=== PATIENT | female | born 1990 | race American Indian/Alaskan Native ===

== ENCOUNTER 2016-07-02 19:17 | Emergency (ER) | payer SELFPAY ==
[2016-07-02 19:53] VITALS: BP 143/105
[2016-07-02 21:56] LABS: Bacteria,Urine 3+ /HPF (Negative); Bilirubin,Urine NEG (Negative); Blood,Urine MOD (Negative); Ketones,Urine NEG (Negative); Leukocyte Esterase,Urine MOD (Negative); Mucus,Urine 1+ /HPF; Nitrite,Urine NEG (Negative); Protein,Urine <15 mg/dL mg/dL (Negative); Urobilinogen,Urine < 2.0 mg/dL (<2.0)
--- NOTE | 2016-07-02 22:21 | Emergency Department Report ---
ED General Adult HPI - General Chief complaint: Skin/Abscess/Foreign Body Stated complaint: LT ARM BOIL/VAGINAL BLEEDING Time Seen by Provider: 07/02/16 21:30 Source: patient Mode of arrival: Ambulatory Limitations: No Limitations - History of Present Illness Initial comments: Patient comes into the ER today with complaints of left axillary pain and swelling for the past week as well as dark brown vaginal discharge for the past 5-6 days. Patient denies any pelvic pain. Patient does state that she is sexually active but that she is on the Depo shot. With regards to the axillary complaint, patient states that she has been putting some topical balm on the area and the swelling has gone down but it is still very painful and tender. Patient denies any discharge. Patient denies any fever, chills, abdominal pain. Associated Symptoms: denies: chest pain, cough, diaphoresis, fever/chills, headaches, loss of appetite, nausea/vomiting, shortness of breath - Related Data Previous Rx's Medication Instructions Recorded Last Taken Type Cephalexin [Keflex] 500 mg PO TID #30 capsule 07/02/16 Unknown Rx HYDROcodone/APAP 5-325 [[place] 1 each PO Q4HR PRN #18 tablet 07/02/16 Unknown Rx 5/325] Sulfamethoxazole/Trimethoprim 1 each PO BID #20 tablet 07/02/16 Unknown Rx [Bactrim DS TAB] Allergies Allergy/AdvReac Type Severity Reaction Status Date / Time No Known Allergies Allergy Verified 07/02/16 19:48 ED Review of Systems ROS: Stated complaint: LT ARM BOIL/VAGINAL BLEEDING Other details as noted in HPI Constitutional: denies: chills, fever Eyes: denies: eye pain, eye discharge, vision change ENT: denies: ear pain, throat pain Respiratory: denies: cough, shortness of breath, wheezing Cardiovascular: denies: chest pain, palpitations Endocrine: no symptoms reported Gastrointestinal: denies: abdominal pain, nausea, diarrhea Genitourinary: discharge (dark brown). denies: urgency, dysuria, frequency, hematuria Musculoskeletal: denies: back pain, joint swelling, arthralgia Skin: lesions (left axillary swelling). denies: rash Neurological: denies: headache, weakness, paresthesias Psychiatric: denies: anxiety, depression Hematological/Lymphatic: denies: easy bleeding, easy bruising ED Past Medical Hx - Past Medical History Previous Medical History?: No - Surgical History Past Surgical History?: No - Social History Smoking Status: Never Smoker Substance Use Type: None - Medications Home Medications: Home Medications Medication Instructions Recorded Confirmed Last Taken Type Cephalexin [Keflex] 500 mg PO TID #30 capsule 07/02/16 Unknown Rx HYDROcodone/APAP 5-325 [[place] 1 each PO Q4HR PRN #18 tablet 07/02/16 Unknown Rx 5/325] Sulfamethoxazole/Trimethoprim 1 each PO BID #20 tablet 07/02/16 Unknown Rx [Bactrim DS TAB] ED Physical Exam - General Limitations: No Limitations General appearance: alert, in no apparent distress - Head Head exam: Present: atraumatic, normocephalic - Eye Eye exam: Present: normal appearance - ENT ENT exam: Present: mucous membranes moist - Neck Neck exam: Present: normal inspection. Absent: lymphadenopathy - Respiratory Respiratory exam: Present: normal lung sounds bilaterally. Absent: respiratory distress - Cardiovascular Cardiovascular Exam: Present: regular rate, normal rhythm. Absent: systolic murmur, diastolic murmur, rubs, gallop - GI/Abdominal GI/Abdominal exam: Present: soft, normal bowel sounds - External exam: Present: normal external exam. Absent: erythema, swelling, lesions, ecchymosis, bleeding Speculum exam: Present: cervical discharge. Absent: vaginal discharge (dark brownish discharge with cervical irritation and redness.), vaginal bleeding, foreign body - Extremities Exam Extremities exam: Present: tenderness (left axillary tenderness and swelling without redness. Large 5-6 cm area of induration without obvious palpable loculation noted.) - Back Exam Back exam: Present: normal inspection - Neurological Exam Neurological exam: Present: alert, oriented X3 - Psychiatric Psychiatric exam: Present: normal affect, normal mood - Skin Skin exam: Present: warm, dry, intact, normal color. Absent: rash ED Course Vital Signs 07/02/16 19:48 Temperature 99.2 F Pulse Rate 100 H Respiratory 20 Rate Blood Pressure 143/105 O2 Sat by Pulse 100 Oximetry ED Medical Decision Making - Medical Decision Making Patient is nontoxic and hemodynamically stable. I discussed with patient the option of incision and drainage of axillary infection at this time and patient would prefer not to do the incision at this time if not indicated. Urine results reviewed and discussed with patient room. I will start patient on some antibiotics appropriately as well as prescribe her some pain medications with close follow-up if symptoms fail to resolve or worsen. I instructed patient come back to the ER in the next couple days for potential incision and drainage if axillary infection is not improving. Patient stable for discharge and in agreement with treatment plan. Critical care attestation.: If time is entered above; I have spent that time in minutes in the direct care of this critically ill patient, excluding procedure time. ED Disposition Clinical Impression: Cutaneous abscess of left axilla, Vaginitis Disposition: DISCHARGED TO HOME OR SELFCARE Is pt being admited?: No Does the pt Need Aspirin: No Condition: Stable Instructions: Cellulitis (ED), Vaginitis (ED) Prescriptions: Cephalexin [Keflex] 500 mg PO TID #30 capsule HYDROcodone/APAP 5-325 [Forest 5/325] 1 each PO Q4HR PRN #18 tablet PRN Reason: Pain Sulfamethoxazole/Trimethoprim [Bactrim DS TAB] 1 each PO BID #20 tablet Referrals: PRIMARY CARE, [Primary Care Provider] - 3-5 Days Time of Disposition: 22:28
== END 2016-07-02 22:37 | disposition home or self-care (01) ==
LOC: ED 19:17
DX: L02.412 Cutaneous abscess of left axilla (principal); N76.0 Acute vaginitis
CPT/HCPCS: 81001; 81025; 87210; 87591; 99284

== ENCOUNTER 2018-03-24 13:25 | Emergency (ER) | payer MEDICAID ==
--- NOTE | 2018-03-24 14:00 | Emergency Department Report ---
Blank Doc - Documentation Documentation: 26 y o female presents with mid sternal 8/10 non radiating chest pain started this mornming no hx of cp or PMH. Exam: nontender to palp, non reducible seems a bit distressed states radiating to lft arm now PLAN: meds cp Protocol ordered ekg: normal sinus reevaluate
[2018-03-24 14:14] LABS: Basophils % (Auto) 0.5 % (0.0-1.8); Eosinophils # (Auto) 0.1 K/mm3 (0.0-0.4); Eosinophils % (Auto) 1.1 % (0.0-4.3); Hematocrit 40.2 % (30.3-42.9); Hemoglobin 13.4 gm/dl (10.1-14.3); Lymphocytes # (Auto) 2.9 K/mm3 (1.2-5.4); Lymphocytes % (Auto) 41.4 % (13.4-35.0); Mean Corpuscular HGB Conc 33 % (30-34); Mean Corpuscular Volume 88 fl (79-97); Monocytes # (Auto) 0.5 K/mm3 (0.0-0.8); Monocytes % (Auto) 7.7 % (0.0-7.3); Platelet Count 278 K/mm3 (140-440); Red Blood Count 4.58 M/mm3 (3.65-5.03)
[2018-03-24 14:25] LABS: BUN/Creatinine Ratio 16; Blood Urea Nitrogen 11 mg/dL (7-17); Calcium 9.8 mg/dL (8.4-10.2); Hemolysis Index 2
[2018-03-24] MEDS ORDERED: NORCO 5/325 PO ONE (15:03)
[2018-03-24] MEDS ORDERED: TORADOL IV ONE (15:03)
--- NOTE | 2018-03-24 15:46 | Emergency Department Report ---
ED Chest Pain HPI - General Chief Complaint: Chest Pain Stated Complaint: CHEST PAIN Time Seen by Provider: 03/24/18 13:50 Source: patient Mode of arrival: Ambulatory Limitations: No Limitations - History of Present Illness Initial Comments: 27-year-old -[place] female presents to the emergency department with a complaint of some midsternal chest pain that started about 11 AM this morning and has gotten progressive worse. She has some intermittent shortness of breath. The chest pain does not radiate. She denies any fever, nausea, vomiting, diaphoresis. She denies any past medical history. She is a nonsmoker. No family history of early cardiac disease or heart attack. She has not taken anything for her symptoms prior to presentation. Patient did have some recent travel in which she had a moderate length car ride. She denies any lower extremity swelling. Severity scale (0 -10): 8 - Related Data Previous Rx's Medication Instructions Recorded Last Taken Type Cephalexin [Keflex] 500 mg PO TID #30 capsule 07/02/16 Unknown Rx Sulfamethoxazole/Trimethoprim 1 each PO BID #20 tablet 07/02/16 Unknown Rx [Bactrim DS TAB] RX: HYDROcodone/APAP 5-325 [[place] 1 each PO Q6H PRN #10 tablet 03/24/18 Unknown Rx 5-325 mg TAB] Allergies Allergy/AdvReac Type Severity Reaction Status Date / Time No Known Allergies Allergy Verified 03/24/18 13:50 Heart Score - HEART Score History: Slightly suspicious EKG: Normal Age: < 45 Risk factors: No known risk factors Troponin: < normal limit HEART Score: 0 - Critical Actions Critical Actions: 0-3 pts:0.9-1.7%risk of adverse cardiac event.Candidate for discharge ED Review of Systems ROS: Stated complaint: CHEST PAIN Other details as noted in HPI Comment: All other systems reviewed and negative Constitutional: denies: chills, fever Eyes: denies: eye pain, vision change ENT: denies: ear pain, throat pain Respiratory: shortness of breath. denies: wheezing Cardiovascular: chest pain. denies: edema Gastrointestinal: denies: abdominal pain, vomiting Genitourinary: denies: dysuria, discharge Musculoskeletal: denies: back pain, arthralgia Skin: denies: rash, change in color Neurological: denies: headache, weakness ED Past Medical Hx - Past Medical History Previous Medical History?: No - Surgical History Past Surgical History?: No - Social History Smoking Status: Never Smoker Substance Use Type: Alcohol - Medications Home Medications: Home Medications Medication Instructions Recorded Confirmed Last Taken Type Cephalexin [Keflex] 500 mg PO TID #30 capsule 07/02/16 Unknown Rx Sulfamethoxazole/Trimethoprim 1 each PO BID #20 tablet 07/02/16 Unknown Rx [Bactrim DS TAB] RX: HYDROcodone/APAP 5-325 [[place] 1 each PO Q6H PRN #10 tablet 03/24/18 Unknown Rx 5-325 mg TAB] ED Physical Exam - General Limitations: No Limitations - Other Other exam information: GENERAL: The patient is well-developed well-nourished. HEENT: Normocephalic. Atraumatic. Patient has moist mucous membranes. EYES: Extraocular motions are intact. NECK: Supple. Trachea is midline. CHEST/LUNGS: Clear to auscultation. There is no respiratory distress noted. HEART/CARDIOVASCULAR: Regular. There is no tachycardia. There is no obvious murmur. ABDOMEN: Abdomen is soft, nontender. Patient has normal bowel sounds. Morbidly obese habitus. SKIN: Skin is warm and dry. NEURO: The patient is awake, alert, and oriented. The patient is cooperative. The patient has no focal neurologic deficits. The patient has normal speech. MUSCULOSKELETAL: There is no tenderness or deformity. There is no limitation range of motion. There is no evidence of acute injury. ED Course Vital Signs 03/24/18 03/24/18 03/24/18 13:50 15:25 15:26 Temperature 98 F Pulse Rate 100 H Respiratory 18 18 18 Rate Blood Pressure 151/97 Blood Pressure [Right] O2 Sat by Pulse 99 Oximetry 03/24/18 16:43 Temperature Pulse Rate Respiratory Rate Blood Pressure Blood Pressure 137/73 [Right] O2 Sat by Pulse Oximetry JAYLAN score - Jaylan Score Age > 65: (0) No Aspirin use within the Past 7 Days: (0) No 3 or more CAD Risk Factors: (0) No 2 or more Angina events in past 24 hrs: (0) No Known CAD with more than 50% Stenosis: (0) No Elevated Cardiac Markers: (0) No ST Deviation Greater than 0.5mm: (0) No JAYLAN Score: 0 ED Medical Decision Making - Lab Data Result diagrams: 03/24/18 13:57 03/24/18 13:57 - EKG Data -: EKG Interpreted by Me EKG shows normal: sinus rhythm, axis, intervals, QRS complexes, ST-T waves Rate: normal - EKG Data When compared to previous EKG there are: previous EKG unavailable Interpretation: normal EKG - Radiology Data Radiology results: report reviewed, image reviewed interpreted by me: Chest x-ray does not show any pneumothorax, pleural effusion, pneumonia or obvious focal consolidation. EXAM: CT ANGIO CHEST HISTORY: CP, elevated dimer TECHNIQUE: CT chest CT angiogram with reconstructions PRIORS: None. FINDINGS: There is no evidence of filling defect within the central pulmonary vasculature to suggest the presence of acute pulmonary embolus. No evidence of mediastinal pathologic lymph node enlargement Heart and great vessels are unremarkable. The aorta is normal in caliber. 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 No pleural fluid collection seen. No acute pulmonary abnormality noted. Visualized portion of the upper abdomen demonstrates no acute change. IMPRESSION: Negative. No CT evidence of acute pulmonary embolus Transcribed By: RODRICK Dictated By: ABHINAV HUSAIN MD Electronically Authenticated By: ABHINAV HUSAIN MD Signed Date/Time: 03/24/18 0499 - Medical Decision Making This patient presents to the emergency department with complaint of some nonradiating midsternal chest pain that started about 11 this morning. EKG is normal without ST elevation MT, ischemia or dysrhythmia. Chest x-ray did not show any pneumothorax, pleural effusions, pneumonia, focal consolidation, or any other acute process. Patient's labs are mostly unremarkable including a neg ative troponin but she did have a slightly elevated and equivocal d-dimer. For this reason a CT angiography of the chest was done that does not show any pulmonary embolism, dissection, or any other acute process. The patient was given a dose of Toradol and a [place] and upon reevaluation she says that her chest pain is greatly improved if not resolved. Vital signs stable throughout her ED course. The patient is low on the heart score criteria and has a JAYLAN score of 0. For all these reasons the patient appears safe for discharge home at this time. She has been given a referral for primary care and cardiology. She will return to the ER with any worsening of her symptoms or any acute dist ress. - Differential Diagnosis MT, PE, costochondritis, GERD, pneumonia Critical Care Time: No Critical care attestation.: If time is entered above; I have spent that time in minutes in the direct care of this critically ill patient, excluding procedure time. ED Disposition Clinical Impression: Atypical chest pain, Elevated blood pressure reading Disposition: TO HOME OR SELFCARE Is pt being admited?: No Condition: Stable Instructions: Chest Pain (ED), Costochondritis (ED) Additional Instructions: Please follow up with a primary care physician. I'm giving you a referral for a local tool profiling machine set up operator, Dr. Alejandra, to follow up regarding your chest pain. Return to the emergency department with any worsening of your symptoms or any acute distress. You have been prescribed a medication that can be sedating. Therefore, this medication cannot be taken prior to driving, working, being responsible for children, and cannot be mixed with alcohol of any quantity. Prescriptions: RX: HYDROcodone/APAP 5-325 [[place] 5-325 mg TAB] 1 each PO Q6H PRN #10 tablet PRN Reason: Pain Referrals: LES RIDDLE MD [Primary Care Provider] - 3-5 Days NIC ALEJANDRA MD [Staff Physician] - 3-5 Days [facility] [Outside] - 3-5 Days Time of Disposition: 16:38
--- NOTE | 2018-03-24 16:23 | XRay Report ---
CHEST TWO VIEWS: 03/24/18 14:46 CLINICAL: Chest pain. COMPARISON: None FINDINGS: Normal heart and pulmonary vasculature. The lungs are normally expanded and clear.The bones and soft tissues are unremarkable. IMPRESSION: Normal chest.
--- NOTE | 2018-03-24 16:29 | Cat Scan Report ---
FINAL REPORT EXAM: CT ANGIO CHEST HISTORY: CP, elevated dimer TECHNIQUE: CT chest CT angiogram with reconstructions PRIORS: None. FINDINGS: There is no evidence of filling defect within the central pulmonary vasculature to suggest the presen ce of acute pulmonary embolus. No evidence of mediastinal pathologic lymph node enlargement Heart and great vessels are unremarkable. The aorta is normal in caliber. Incidentally noted is aber rant right subclavian artery No focal pulmonary infiltrate identified. No pleural fluid collection seen. No acute pulmonary abnor mality noted. Visualized portion of the upper abdomen demonstrates no acute change. IMPRESSION: Negative. No CT evidence of acute pulmonary embolus
[2018-03-24 16:43] VITALS: BP 137/73
== END 2018-03-24 16:51 | disposition home or self-care (01) ==
LOC: ED 13:25
DX: R07.89 Other chest pain (principal); R03.0 Elevated blood-pressure reading, without diagnosis of hypertension
CPT/HCPCS: 36415; 71046; 71275; 80048; 84484; 84703; 85025; 85379; 93005; 93010; 96374; 99284; J1885; Q9967

== ENCOUNTER 2018-12-10 18:12 | Emergency (ER) | payer SELFPAY ==
--- NOTE | 2018-12-10 18:21 | Event Note ---
ED Screening Note ED Screening Note: left lower back pain that began three weeks ago no urinary sx no fall or injury no fever no n/v no bowel or bladder incontinence, no numbness or weakness no PMHx no allergies to meds LNMP: nov 25 family hx of HTN, denies any personal hx of HTN
[2018-12-10 18:25] VITALS: BP 152/98
[2018-12-10 19:09] LABS: Bilirubin,Urine NEG (Negative); Blood,Urine NEG (Negative); Color,Urine Yellow (Yellow); HCG Qualitative,Urine Negative (Negative); Mucus,Urine FEW /HPF; Protein,Urine <15 mg/dL mg/dL (Negative)
--- NOTE | 2018-12-10 19:39 | Emergency Department Report ---
ED Back Pain/Injury HPI - General Chief Complaint: Back Pain/Injury Stated Complaint: BACK/HIP PAIN Time Seen by Provider: 12/10/18 18:19 Source: patient Limitations: No Limitations - History of Present Illness Initial Comments: Patient is a 28-year-old [place] female states for the past 3 days she has had some lower back pain with radiation to the left hip. Patient states that is worse when she is sitting upright on her left buttock. There is some radiation and also into the anterior thigh. Patient denies any dysuria or urinary frequency vaginal discharge or vaginal bleeding nausea vomiting diarrhea at this time. Patient states the pain is also worse with movement and is 6 out of 10 pain. Patient has taken one muscle relaxant and several pain pills intermittently over the last 3 weeks. She has not been on any consistent therapy and this is her first time seeking medical help for this issue. - Related Data Previous Rx's Medication Instructions Recorded Last Taken Type Cephalexin [Keflex] 500 mg PO TID #30 capsule 07/02/16 Unknown Rx Sulfamethoxazole/Trimethoprim 1 each PO BID #20 tablet 07/02/16 Unknown Rx [Bactrim DS TAB] HYDROcodone/APAP 5-325 [[place] 1 each PO Q6H PRN #10 tablet 03/24/18 Unknown Rx 5-325 mg TAB] methOCARBAMOL [Robaxin TAB] 500 mg PO Q6H PRN #14 tablet 12/10/18 Unknown Rx predniSONE [Deltasone] 10 mg PO .TAPER #21 tab 12/10/18 Unknown Rx traMADol [Ultram] 50 mg PO Q6HR PRN #12 tablet 12/10/18 Unknown Rx Allergies Allergy/AdvReac Type Severity Reaction Status Date / Time No Known Allergies Allergy Verified 03/24/18 13:50 ED Review of Systems ROS: Stated complaint: BACK/HIP PAIN Other details as noted in HPI Comment: All other systems reviewed and negative ED Back Pain Physical Exam - Exam General: Vital signs noted. No distress. Alert and acting appropriately. Back/Abdomen: No Abdominal Tenderness, No Perithoracic Tenderness, No Perilumbar Tenderness, No Sacroiliac Tenderness, No Flank Tenderness, No Straight Leg Raise Pain Neuro: Yes Normal Sensation, Yes Normal DTR's, Yes Normal Gait, No Motor Weakness ED Course Vital Signs 12/10/18 12/10/18 18:16 18:24 Temperature 98.5 F Pulse Rate 96 H 97 H Respiratory 18 Rate Blood Pressure 157/110 152/98 O2 Sat by Pulse 98 97 Oximetry ED Medical Decision Making - Lab Data Lab Results 12/10/18 Range/Units Unknown Urine Color Yellow (Yellow) Urine Turbidity Slightly-cloudy (Clear) Urine pH 6.0 (5.0-7.0) Ur Specific [place] 1.023 (1.003-1.030) Urine Protein <15 mg/dl (Negative) mg/dL Urine Glucose (UA) Neg (Negative) mg/dL Urine Ketones Neg (Negative) mg/dL Urine Blood Neg (Negative) Urine Nitrite Neg (Negative) Ur Reducing Substances Not Reportable Urine Bilirubin Neg (Negative) Urine Ictotest Not Reportable Urine Urobilinogen 2.0 (<2.0) mg/dL Ur Leukocyte Esterase Tr (Negative) Urine WBC (Auto) 3.0 (0.0-6.0) /HPF Urine RBC (Auto) 2.0 (0.0-6.0) /HPF U Epithel Cells (Auto) 7.0 (0-13.0) /HPF Urine Mucus Few /HPF Urine HCG, Qual Negative (Negative) - Medical Decision Making Patient is a 28-year-old -[place] female who is presenting with some lower back and left hip pain. Urinalysis was negative for infection or significant hematuria. Asians likely with nerve pain with radiculopathy. Patient will be given meds for symptomatically relief and will follow with orthopedics as needed. Critical care attestation.: If time is entered above; I have spent that time in minutes in the direct care of this critically ill patient, excluding procedure time. ED Disposition Clinical Impression: Lumbar radiculopathy Disposition: DC-01 TO HOME OR SELFCARE Is pt being admited?: No Does the pt Need Aspirin: No Condition: Stable Instructions: Lumbar Radiculopathy (ED) Referrals: SAMIRA DARDEN MD [Staff Physician] - 3-5 Days Time of Disposition: 19:38
== END 2018-12-10 20:08 | disposition home or self-care (01) ==
LOC: ED 18:12
DX: M54.16 Radiculopathy, lumbar region (principal)
CPT/HCPCS: 81001; 81025

== ENCOUNTER 2020-08-05 12:04 | Outpatient (CLI) | payer BC, MEDICAID ==
[2020-08-05] MEDS ORDERED: LACTATED RINGERS 1,000 ML IV ONE (12:55)
[2020-08-05 13:54] LABS: Bacteria,Urine 3+ /HPF (Negative); Bilirubin,Urine NEG (Negative); Blood,Urine NEG (Negative); Color,Urine Yellow (Yellow); Mucus,Urine 1+ /HPF; Protein,Urine <15 mg/dL mg/dL (Negative); Urobilinogen,Urine < 2.0 mg/dL (<2.0)
[2020-08-05 14:24] LABS: Hematocrit 33.6 % (30.3-42.9); Hemoglobin 11.5 gm/dl (10.1-14.3); Mean Corpuscular HGB Conc 34 % (30-34); Mean Corpuscular Volume 88 fl (79-97); Platelet Count 190 K/mm3 (140-440); Red Cell Distribution Width 14.3 % (13.2-15.2)
[2020-08-05 14:51] LABS: Alanine Aminotransferase 11 units/L (7-56); Uric Acid 2.7 mg/dL (3.5-7.6)
[2020-08-05 14:52] VITALS: BP 127/76
== END 2020-08-05 15:15 | disposition home or self-care (01) ==
LOC: TRG 12:04 → APU 12:08 → TRG 15:15
PROVIDERS: ATTEND Obstetrics & Gynecology
DX: Z34.92 Encounter for supervision of normal pregnancy, unspecified, second trimester (principal); Z3A.25 25 weeks gestation of pregnancy
CPT/HCPCS: 36415; 59025; 81001; 82565; 83615; 84450; 84460; 84550; 85027

== ENCOUNTER 2020-10-29 12:26 | Inpatient (IN) | payer BC, MEDICAID ==
--- NOTE | 2020-10-29 12:33 | History and Physical Report ---
History of Present Illness Date of examination: 10/29/20 Date of admission: 10/29/20 12:26 Chief complaint: direct admit History of present illness: Past History : 5 Term Births: 2 Premature Births: 1 Living Children: 3 Para: 3 Mult. Births: 0 Prev : 0 Aborta: 2 Elect. Ab: 2 Spont. Ab: 0 Ectopics: 0 # 1 Delivery date: 09/23/2010 Weeks Gestation: 39+2 Delivery type: Vaginal Anesthesia type: IV medication Sex: female weight: 5.88 # 2 Delivery date: 01/19/2012 Weeks Gestation: 39 Delivery type: Vaginal Hours of labor: 8 Anesthesia type: IV medication Delivery location: [facility] Infant Sex: male weight: 7.31 # 3 Delivery date: 2014 Weeks Gestation: Unknown Delivery type: EAB Comments: Pt unsure of gestational age at termination, took medications, denies complications and did not have a D&C. # 4 Delivery date: 2020 Weeks Gestation: Unknown Delivery type: EAB Comments: Denies D&C and complications; reports she took medications. Pt unsure how many weeks of gestation at time of termination. #5 Delivery Date: 10/22/2020 Gestational Age: 36.4 weeks Labor Length: 8 hours Anesthesia: IV medication Delivery Type: Vaginal Weight: 5.88 lbs Gender: female Location: [facility] Complications: gHTN, 36.4 wks @ time of delivery Family History Summary: MGM - Has Family History of Hypertension - Entered On: 04/07/2020 PGM - Has Family History of Hypertension - Entered On: 04/07/2020 MGM - Has Family History of Diabetes - Entered On: 04/07/2020 PGM - Has Family History of Diabetes - Entered On: 04/07/2020 General Comments - FH: No Family History of Breast Cancer No Family History of Colon Cancer No Family History of Ovarvian Cancer Social History: Reviewed history from 03/04/2010 and no changes required: Patient is single no tobacco, no etoh, no illicit drug use Risk Factors: Smoked Tobacco Use: Never smoker Smokeless Tobacco Use: Never HIV high-risk behavior: no Alcohol use: yes Type: occ Exercise: no 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 % Dietary Counseling: pn yes PAP Smear History: Date of Last PAP Smear: 09/15/2019 Results: Normal Past Medical History: Reviewed history from 03/04/2010 and no changes required: Negative Past Medical History no std hx no abd pap hx Past Surgical History: Reviewed history from 09/27/2019 and no changes required: negative Past Medical History Anesthesia Complications: negative Anemia: negative Autoimmune Disorder: negative Bleeding Disorder: negative Blood Transfusions: negative Breast Disease: negative Diabetes: negative Heart Disease: negative Hypertension: negative Hepatitis/Liver Disease: negative Kidney Disease/UTI: negative Neurologic/Epilepsy/Migraines: negative Phlebitis/Varicosities: negative Psychiatric: negative Pulmonary Disease/Asthma: negative Thyroid Disease: negative Hospitalizations: negative Surgery (Non-animal skinner): negative Abnormal PAP: negative CRISSY Exposure: negative Infertility: negative Uterine Anomaly: negative Uterine Surgery (not C/S): negative Other Gynecologic Problems: negative Social Hx: Patient is single no tobacco, no etoh, no illicit drug use Infection History Hx of STD: none HIV Risk Eval: no Hepatitis B Risk Eval: low risk Personal hx. of genital herpes: no Partner hx. of genital herpes: no Rash, Viral, or Febrile illness since last LMP? no Varicella/Chicken Pox Status: Previous Disease TB Risk: no Genetic History Congenital Heart Defect: Mom: no Dad: no Cristina Disease: Mom: no Dad: no Thalassemia Mom: no Dad: no Neural Tube Defect Mom: no Dad: no Down's Syndrome Mom: no Dad: no Aaron-Sachs Mom: no Dad: no Sickle Cell Disease/Trait Mom: no Dad: no Hemophilia Mom: no Dad: no Muscular Dystrophy Mom: no Dad: no Cystic Fibrosis Mom: no Dad: no Lincoln Chorea Mom: no Dad: no Mental Retardation Mom: no Dad: no Fragile X Mom: no Dad: no Other Genetic/Chromosomal Disorder Mom: no Dad: no Child w/other defect Mom: no Dad: no Enviromental Exposures Enviromental Exposures Reviewed Xray Exposure: no Medication, drug, or alcohol use since LMP: no Chemical/Other Exposure: no Exposure to Cat Liter: no Hx of Parvovirus (Fifth Disease): no Occupational Exposure to Children: none Current Allergies (reviewed today): No known allergies Past History Past Medical History: other (see HPI) Past Surgical History: other (see HPI) 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) Family/Genetic History: other (see HPI) Social history: other (see HPI) - Obstetrical History : 5 Para: 3 Hx # Term Pregnancies: 2 Number of Pregnancies: 1 Spontaneous Abortions: 0 Induced : 2 Number of Living Children: 3 Medications and Allergies Allergies Allergy/AdvReac Type Severity Reaction Status Date / Time No Known Allergies Allergy Verified 03/24/18 13:50 Home Medications Medication Instructions Recorded Confirmed Last Taken Type Aspirin 325 mg PO ONCE 10/23/20 10/23/20 10/21/20 10:00 History Vit-Fe Fumar-FA [ 1 tab PO DAILY 10/23/20 10/23/20 10/21/20 10:00 History Vitamin] Labetalol HCl [Labetalol 300mg TAB] 300 mg PO TID #90 tablet 10/24/20 Unknown Rx Review of Systems Eyes: normal appearance, no blurred vision, no loss of peripheral vision, no tunnel vision, no blind spots Gastrointestinal: no abdominal pain Neurological: headaches - Physical Exam Breasts: Positive: Cardiovascular: Regular rate Lungs: Positive: Normal air movement Abdomen: Positive: normal appearance, soft Extremities: Positive: normal Results Result Diagrams: 10/29/20 14:20 10/29/20 14:20 All other labs normal. 05/05/2020 Tests: (1) Profile I ([id number]) Order Note: Clinical Information: SRC:UR HBsAg Screen Negative Negative *1 RPR Non Reactive Non Reactive *2 Rubella Antibodies, IgG [L] <0.90 index Immune >0.99 *3 Non-immune <0.90 Equivocal 0.90 - 0.99 Immune >0.99 ABO Grouping B *4 Rh Factor Positive *5 Please note: Prior records for this patient's ABO / Rh type are not available for additional verification. Antibody Screen Negative Negative *6 WBC 5.8 x10E3/uL 3.4-10.8 *7 RBC 3.88 x10E6/uL 3.77-5.28 *8 Hemoglobin 11.4 g/dL 11.1-15.9 *9 Hematocrit 35.3 % 34.0-46.6 *10 MCV 91 fL 79-97 *11 MCH 29.4 pg 26.6-33.0 *12 MCHC 32.3 g/dL 31.5-35.7 *13 RDW 13.1 % 11.7-15.4 *14 Platelets 221 x10E3/uL 150-450 *15 Neutrophils 58 % Not Estab. *16 Lymphs 31 % Not Estab. *17 Monocytes 10 % Not Estab. *18 Eos 1 % Not Estab. *19 Basos 0 % Not Estab. *20 ! Immature Cells <No Reported Value> *21 Neutrophils (Absolute) 3.3 x10E3/uL 1.4-7.0 *22 Lymphs (Absolute) 1.8 x10E3/uL 0.7-3.1 *23 Monocytes(Absolute) 0.6 x10E3/uL 0.1-0.9 *24 Eos (Absolute) 0.1 x10E3/uL 0.0-0.4 *25 Baso (Absolute) 0.0 x10E3/uL 0.0-0.2 *26 ! Immature Granulocytes 0 % Not Estab. *27 ! Immature Grans (Abs) 0.0 x10E3/uL 0.0-0.1 *28 ! NRBC <No Reported Value> *29 Hematology Comments: <No Reported Value> *30 Tests: (2) HB Solu + Rflx Frac ([id number]) Hemoglobin (Hgb) Solubility Negative Negative *31 Tests: (3) HIV Ag/Ab with Reflex ([id number]) HIV Screen 4th Generation wRfx Non Reactive Non Reactive *32 Tests: (4) Gest. Diabetes 1-Hr Screen ([id number]) ! Gestational Diabetes Screen 103 mg/dL 65-139 *33 According to ADA, a glucose threshold of >139 mg/dL after 50-gram load identifies approximately 80% of women with gestational diabetes mellitus, while the sensitivity is further increased to approximately 90% by a threshold of >129 mg/dL. Tests: (5) HCV Ab w/Rflx to Verification ([id number]) ! HCV Ab <0.1 s/co ratio 0.0-0.9 *34 Tests: (6) Comment: ([id number]) ! Comment: SPRCS *35 Non reactive HCV antibody screen is consistent with no HCV infection, unless recent infection is suspected or other evidence exists to indicate HCV infection. Tests: (7) Urine Culture, Routine ([id number]) Urine Culture, Routine Final report *36 Tests: (8) Result ([id number]) ! Result 1 No growth *37 Assessment and Plan Pt sent from office for direct admit d/t BP 160/120 & 160/100. Pt delivered via on 10/22/20; H/O Preeclampsia and Magnesium administration 1 week ago during hospital admission. Pt reports still taking Labetalol 300mg TID PO daily. Denies RUQ pain and vision changes. Reports headaches relieved by Motrin. Precautions and POC d/w pt. Pt verbalizes understanding. Dr. Pina made aware. Orders for admission placed in EMR. - Patient Problems (1) complication Current Visit: Yes Status: Acute Plan to address problem: consult requested breast pumping ordered (2) Pre-eclampsia Current Visit: No Status: Acute Qualifiers: Trimester: third trimester Qualified Code(s): O14.93 - Unspecified pre- eclampsia, third trimester Plan to address problem: Magnesium Sulfate IV with lab draws as ordered Strict I&O Continue home dose of PO antihypertensives, per Dr. Pina IV antihypertensives to be given if needed per protocol Monitor closely and notify provider with any changes in status
[2020-10-29] MEDS ORDERED: MAGNESIUM SULFATE 4 GM/100 ML BAG IV ONE (12:34)
[2020-10-29] MEDS ORDERED: ONDANSETRON 4 MG/2 ML INJ IV PRN (12:36)
[2020-10-29] MEDS ORDERED: LANOLIN/ZINC/DIMETHICONE (LANSINOH) 7 GM TP PRN (12:36)
[2020-10-29] MEDS ORDERED: diphenhydrAMINE 25 MG CAP PO PRN (12:36)
[2020-10-29] MEDS ORDERED: KETOROLAC 30 MG/1 ML INJ IV PRN (12:36)
[2020-10-29] MEDS ORDERED: BENZOCAINE/MENTHOL 20/0.5% TOP SPRAY 56 GM TP PRN (12:36)
[2020-10-29] MEDS ORDERED: ACETAMINOPHEN 325 MG TAB PO PRN (12:36)
[2020-10-29] MEDS ORDERED: PROMETHAZINE 25 MG TAB PO PRN (12:36)
[2020-10-29] MEDS ORDERED: MAGNESIUM HYDROXIDE (MOM) ORAL LIQD UDC PO PRN (12:36)
[2020-10-29] MEDS ORDERED: WITCH HAZEL/ GLYCERIN PAD TP PRN (12:36)
[2020-10-29] MEDS ORDERED: hydrALAZINE 20 MG/1 ML INJ IV SCH (13:00)
[2020-10-29] MEDS ORDERED: MAGNESIUM SULFATE 40GM/1000ML 40 GM/1,000 ML BAG IV SCH (13:00)
[2020-10-29] MEDS ORDERED: LACTATED RINGERS 1,000 ML ONE (13:02)
[2020-10-29] MEDS ORDERED: hydrALAZINE 20 MG/1 ML INJ ONE (13:18)
[2020-10-29] MEDS ORDERED: ACETAMINOPHEN 500 MG TAB PO PRN (14:00)
[2020-10-29] MEDS: LACTATED RINGERS 1,000 ML IV SCH (14:18)
[2020-10-29 15:12] LABS: Hematocrit 32.3 % (30.3-42.9); Hemoglobin 10.9 gm/dl (10.1-14.3); Mean Corpuscular HGB Conc 34 % (30-34); Mean Corpuscular Volume 89 fl (79-97); Platelet Count 236 K/mm3 (140-440); Red Blood Count 3.65 M/mm3 (3.65-5.03); Red Cell Distribution Width 15.5 % (13.2-15.2)
[2020-10-29 15:18] LABS: Bacteria,Urine 1+ /HPF (Negative); Bilirubin,Urine NEG (Negative); Blood,Urine LG (Negative); Color,Urine Yellow (Yellow); Mucus,Urine 3+ /HPF; Urobilinogen,Urine < 2.0 mg/dL (<2.0)
[2020-10-29 15:39] LABS: Alanine Aminotransferase 35 units/L (7-56); Uric Acid 5.1 mg/dL (3.5-7.6)
[2020-10-29] MEDS: IBUPROFEN 600 MG TAB PO PRN (19:27)
[2020-10-29] MEDS: DOCUSATE SODIUM 100 MG CAP PO SCH (22:32)
[2020-10-29] MEDS: FERROUS SULFATE 325 MG TAB PO SCH (22:32)
[2020-10-30] MEDS: LACTATED RINGERS 1,000 ML IV SCH (01:25)
--- NOTE | 2020-10-30 06:41 | Progress Note ---
Assessment and Plan Pt w/o complaint states " I'm happy to be getting some rest." - Patient Problems (1) Pre-eclampsia, Onset Date: ~10/29/20 Current Visit: Yes Status: Acute Plan to address problem: Pt's BP 160-117/80-60 Labetalol was held @ 2000 due to a reading of 90/50 MGSO4 infusing @ 2gm/hr due to be completed @ 1300. Output 1050 since midnight. Pt stable s/p 10-22-20 then readmit for BP control on 10-29-20. P: Will consult with Dr Clinton @ Labetalol. Continue 24hr MGSO4. Continue plan as ordered. Subjective Date of service: 10/30/20 (pt sleeping; denies GRANT, blurred vision, chest pain) Principal diagnosis: Hypertension Objective - Constitutional Vitals: Vital Signs - 12hr 10/29/20 10/29/20 10/29/20 18:37 18:42 18:47 Temperature Pulse Rate 88 90 90 Respiratory Rate Blood Pressure Blood Pressure [Right] O2 Sat by Pulse 99 99 99 Oximetry 10/29/20 10/29/20 10/29/20 18:52 18:57 19:02 Temperature Pulse Rate 87 84 84 Respiratory Rate Blood Pressure Blood Pressure [Right] O2 Sat by Pulse 100 99 99 Oximetry 10/29/20 10/29/20 10/29/20 19:07 19:12 19:17 Temperature Pulse Rate 85 82 75 Respiratory Rate Blood Pressure Blood Pressure [Right] O2 Sat by Pulse 99 99 99 Oximetry 10/29/20 10/29/20 10/29/20 19:22 19:27 19:30 Temperature 98.2 F Pulse Rate 79 86 83 Respiratory 18 18 Rate Blood Pressure Blood Pressure 118/58 [Right] O2 Sat by Pulse 98 100 100 Oximetry 10/29/20 10/29/20 10/29/20 19:31 19:32 19:37 Temperature Pulse Rate 82 83 82 Respiratory Rate Blood Pressure 118/58 Blood Pressure [Right] O2 Sat by Pulse 99 100 Oximetry 10/29/20 10/29/20 10/29/20 19:42 19:47 19:52 Temperature Pulse Rate 79 75 75 Respiratory Rate Blood Pressure Blood Pressure [Right] O2 Sat by Pulse 100 99 100 Oximetry 10/29/20 10/29/20 10/29/20 19:57 20:02 20:07 Temperature Pulse Rate 77 79 78 Respiratory Rate Blood Pressure Blood Pressure [Right] O2 Sat by Pulse 98 99 98 Oximetry 10/29/20 10/29/20 10/29/20 20:12 20:17 20:25 Temperature Pulse Rate 77 91 H 81 Respiratory Rate Blood Pressure 98/51 Blood Pressure [Right] O2 Sat by Pulse 99 99 Oximetry 10/29/20 10/29/20 10/29/20 20:27 20:30 20:57 Temperature Pulse Rate 82 80 Respiratory Rate Blood Pressure 106/55 107/56 98/51 Blood Pressure [Right] O2 Sat by Pulse Oximetry 10/29/20 10/29/20 10/29/20 20:58 21:31 22:10 Temperature Pulse Rate 80 79 Respiratory Rate Blood Pressure 98/51 134/66 Blood Pressure [Right] O2 Sat by Pulse 100 Oximetry 10/29/20 10/29/20 10/29/20 22:11 22:15 22:20 Temperature Pulse Rate 76 70 74 Respiratory Rate Blood Pressure 144/72 Blood Pressure [Right] O2 Sat by Pulse 100 99 Oximetry 10/29/20 10/29/20 10/29/20 22:25 22:30 22:31 Temperature Pulse Rate 77 78 77 Respiratory Rate Blood Pressure 146/73 Blood Pressure [Right] O2 Sat by Pulse 99 100 Oximetry 10/29/20 10/29/20 10/29/20 22:35 22:40 22:45 Temperature Pulse Rate 75 76 79 Respiratory Rate Blood Pressure 140/67 Blood Pressure [Right] O2 Sat by Pulse 100 100 100 Oximetry 10/29/20 10/29/20 10/29/20 22:50 22:55 23:00 Temperature Pulse Rate 72 71 70 Respiratory Rate Blood Pressure Blood Pressure [Right] O2 Sat by Pulse 100 99 99 Oximetry 10/29/20 10/29/20 10/29/20 23:05 23:10 23:15 Temperature Pulse Rate 73 82 83 Respiratory Rate Blood Pressure Blood Pressure [Right] O2 Sat by Pulse 98 100 100 Oximetry 10/29/20 10/29/20 10/29/20 23:20 23:25 23:30 Temperature Pulse Rate 76 80 75 Respiratory Rate Blood Pressure Blood Pressure [Right] O2 Sat by Pulse 100 99 99 Oximetry 10/29/20 10/29/20 10/29/20 23:31 23:35 23:40 Temperature Pulse Rate 75 72 74 Respiratory Rate Blood Pressure 132/66 Blood Pressure [Right] O2 Sat by Pulse 100 98 Oximetry 10/29/20 10/29/20 10/29/20 23:45 23:50 23:55 Temperature Pulse Rate 76 73 74 Respiratory Rate Blood Pressure Blood Pressure [Right] O2 Sat by Pulse 97 98 97 Oximetry 10/30/20 10/30/20 10/30/20 00:00 00:05 00:10 Temperature Pulse Rate 75 75 74 Respiratory Rate Blood Pressure Blood Pressure [Right] O2 Sat by Pulse 99 97 98 Oximetry 10/30/20 10/30/20 10/30/20 00:15 00:20 00:25 Temperature Pulse Rate 75 78 73 Respiratory Rate Blood Pressure Blood Pressure [Right] O2 Sat by Pulse 98 100 98 Oximetry 10/30/20 10/30/20 10/30/20 00:30 00:31 00:35 Temperature Pulse Rate 71 68 73 Respiratory Rate Blood Pressure 117/60 Blood Pressure [Right] O2 Sat by Pulse 99 98 Oximetry 10/30/20 10/30/20 10/30/20 00:40 00:45 00:50 Temperature Pulse Rate 71 70 69 Respiratory Rate Blood Pressure Blood Pressure [Right] O2 Sat by Pulse 98 98 99 Oximetry 10/30/20 10/30/20 10/30/20 00:55 01:00 01:05 Temperature Pulse Rate 73 71 74 Respiratory Rate Blood Pressure Blood Pressure [Right] O2 Sat by Pulse 98 98 98 Oximetry 10/30/20 10/30/20 10/30/20 01:10 01:15 01:20 Temperature Pulse Rate 69 72 75 Respiratory Rate Blood Pressure Blood Pressure [Right] O2 Sat by Pulse 98 98 99 Oximetry 10/30/20 10/30/20 10/30/20 01:21 01:25 01:30 Temperature Pulse Rate 75 70 73 Respiratory Rate Blood Pressure 158/72 Blood Pressure [Right] O2 Sat by Pulse 99 99 Oximetry 10/30/20 10/30/20 10/30/20 01:31 01:35 01:40 Temperature Pulse Rate 69 69 72 Respiratory Rate Blood Pressure 135/61 Blood Pressure [Right] O2 Sat by Pulse 98 99 Oximetry 10/30/20 10/30/20 10/30/20 01:45 01:50 01:55 Temperature Pulse Rate 72 70 73 Respiratory Rate Blood Pressure Blood Pressure [Right] O2 Sat by Pulse 98 99 98 Oximetry 10/30/20 10/30/20 10/30/20 02:00 02:05 02:10 Temperature Pulse Rate 75 77 75 Respiratory Rate Blood Pressure Blood Pressure [Right] O2 Sat by Pulse 98 98 100 Oximetry 10/30/20 10/30/20 10/30/20 02:15 02:20 02:25 Temperature Pulse Rate 73 73 72 Respiratory Rate Blood Pressure Blood Pressure [Right] O2 Sat by Pulse 99 99 99 Oximetry 10/30/20 10/30/20 10/30/20 02:30 02:31 02:34 Temperature Pulse Rate 76 71 82 Respiratory Rate Blood Pressure 139/64 Blood Pressure [Right] O2 Sat by Pulse 99 92 Oximetry 10/30/20 10/30/20 10/30/20 02:35 02:40 02:42 Temperature Pulse Rate 71 75 76 Respiratory Rate Blood Pressure Blood Pressure [Right] O2 Sat by Pulse 98 98 92 Oximetry 10/30/20 10/30/20 10/30/20 02:45 02:50 02:55 Temperature Pulse Rate 71 78 72 Respiratory Rate Blood Pressure Blood Pressure [Right] O2 Sat by Pulse 99 98 98 Oximetry 10/30/20 10/30/20 10/30/20 02:56 03:00 03:05 Temperature Pulse Rate 71 74 71 Respiratory Rate Blood Pressure Blood Pressure [Right] O2 Sat by Pulse 89 99 99 Oximetry 10/30/20 10/30/20 10/30/20 03:10 03:15 03:20 Temperature Pulse Rate 72 71 74 Respiratory Rate Blood Pressure Blood Pressure [Right] O2 Sat by Pulse 98 98 98 Oximetry 10/30/20 10/30/20 10/30/20 03:25 03:30 03:31 Temperature Pulse Rate 75 75 71 Respiratory Rate Blood Pressure 126/60 Blood Pressure [Right] O2 Sat by Pulse 98 99 Oximetry 10/30/20 10/30/20 10/30/20 03:35 03:40 03:45 Temperature Pulse Rate 70 70 74 Respiratory Rate Blood Pressure Blood Pressure [Right] O2 Sat by Pulse 99 98 98 Oximetry 10/30/20 10/30/20 10/30/20 03:50 03:55 04:00 Temperature Pulse Rate 72 75 75 Respiratory Rate Blood Pressure Blood Pressure [Right] O2 Sat by Pulse 98 98 98 Oximetry 10/30/20 10/30/20 10/30/20 04:05 04:10 04:15 Temperature Pulse Rate 76 76 75 Respiratory Rate Blood Pressure Blood Pressure [Right] O2 Sat by Pulse 98 99 100 Oximetry 10/30/20 10/30/20 10/30/20 04:20 04:25 04:30 Temperature Pulse Rate 77 74 76 Respiratory Rate Blood Pressure Blood Pressure [Right] O2 Sat by Pulse 98 99 99 Oximetry 10/30/20 10/30/20 10/30/20 04:31 04:35 04:40 Temperature Pulse Rate 83 75 72 Respiratory Rate Blood Pressure 118/80 Blood Pressure [Right] O2 Sat by Pulse 97 98 Oximetry 10/30/20 10/30/20 10/30/20 04:45 04:47 04:50 Temperature Pulse Rate 75 75 79 Respiratory Rate Blood Pressure Blood Pressure [Right] O2 Sat by Pulse 98 94 96 Oximetry 10/30/20 10/30/20 10/30/20 04:55 05:00 05:02 Temperature Pulse Rate 86 72 81 Respiratory Rate Blood Pressure Blood Pressure [Right] O2 Sat by Pulse 98 100 91 Oximetry 10/30/20 10/30/20 10/30/20 05:05 05:10 05:15 Temperature Pulse Rate 75 72 78 Respiratory Rate Blood Pressure Blood Pressure [Right] O2 Sat by Pulse 99 98 96 Oximetry 10/30/20 10/30/20 10/30/20 05:20 05:25 05:30 Temperature Pulse Rate 71 74 74 Respiratory Rate Blood Pressure Blood Pressure [Right] O2 Sat by Pulse 99 99 99 Oximetry 10/30/20 10/30/20 10/30/20 05:32 05:35 05:40 Temperature Pulse Rate 78 69 74 Respiratory Rate Blood Pressure 167/72 Blood Pressure [Right] O2 Sat by Pulse 100 99 Oximetry 10/30/20 10/30/20 10/30/20 05:45 05:50 05:55 Temperature Pulse Rate 72 70 72 Respiratory Rate Blood Pressure Blood Pressure [Right] O2 Sat by Pulse 98 99 99 Oximetry 10/30/20 10/30/20 10/30/20 06:00 06:05 06:10 Temperature Pulse Rate 74 72 73 Respiratory Rate Blood Pressure Blood Pressure [Right] O2 Sat by Pulse 99 99 99 Oximetry 10/30/20 10/30/20 10/30/20 06:15 06:20 06:24 Temperature Pulse Rate 81 81 81 Respiratory Rate Blood Pressure Blood Pressure [Right] O2 Sat by Pulse 99 96 94 Oximetry 10/30/20 10/30/20 10/30/20 06:25 06:30 06:31 Temperature Pulse Rate 78 71 71 Respiratory Rate Blood Pressure 159/74 Blood Pressure [Right] O2 Sat by Pulse 99 100 Oximetry General appearance: Present: no acute distress, well-nourished - EENT Eyes: PERRL, EOM intact ENT: hearing intact, clear oral mucosa Ears: bilateral: normal - Neck Neck: supple, normal ROM - Respiratory Respiratory effort: normal Respiratory: bilateral: CTA - Breasts Breasts: deferred - Cardiovascular Rhythm: regular Heart Sounds: Present: S1 & S2. Absent: gallop, rub Extremity abnormal: edema - Gastrointestinal General gastrointestinal: Present: soft, non-tender, non-distended, normal bowel sounds Rectal Exam: deferred - Genitourinary Female genitourinary: deferred - Integumentary Integumentary: clear, warm, dry - Musculoskeletal Musculoskeletal: 1, strength equal bilaterally - Neurologic Neurologic: moves all extremities - Psychiatric Psychiatric: memory intact, appropriate mood/affect, intact judgment & insight - Labs CBC & Chem 7: 10/29/20 14:20 10/29/20 14:20 Labs: Abnormal lab results 10/29/20 10/29/20 10/29/20 Range/Units 14:20 14:20 14:20 RDW 15.5 H (13.2-15.2) % Creatinine 0.5 L (0.6-1.2) mg/dL Magnesium (1.7-2.3) mg/dL Lactate Dehydrogenase 219 H (91-180) units/L Urine WBC (Auto) 89.0 H (0.0-6.0) /HPF 10/29/20 10/30/20 Range/Units 20:45 00:19 RDW (13.2-15.2) % Creatinine (0.6-1.2) mg/dL Magnesium 4.70 H 4.70 H (1.7-2.3) mg/dL Lactate Dehydrogenase (91-180) units/L Urine WBC (Auto) (0.0-6.0) /HPF Medications & Allergies - Medications Allergies/Adverse Reactions: Allergies No Known Allergies Allergy (Verified 02/08/19 13:50) Home Medications: Home Medications Medication Instructions Recorded Confirmed Last Taken Type Aspirin 325 mg PO ONCE 10/23/20 10/23/20 10/21/20 10:00 History Vit-Fe Fumar-FA [ 1 tab PO DAILY 10/23/20 10/23/20 10/21/20 10:00 History Vitamin] Labetalol HCl [Labetalol 300mg TAB] 300 mg PO TID #90 tablet 10/24/20 Unknown Rx Active Medications: Generic Name Dose Route Start Last Admin Trade Name Freq PRN Reason Stop Dose Admin Acetaminophen 1,000 mg 10/29/20 14:00 10/29/20 14:50 Acetaminophen 500 Mg Tab PO 1,000 mg Q6H PRN Administration Pain, Mild (1-3) Benzocaine/Menthol 1 spray 10/29/20 12:36 Benzocaine/Menthol 20/0.5% Top [place] 56 Gm TP PRN PRN Episiotomy Pain Diphenhydramine HCl 25 mg 10/29/20 12:36 10/29/20 22:38 Diphenhydramine 25 Mg Cap PO 25 mg Q6H PRN Administration Itching Docusate Sodium 100 mg 10/29/20 22:00 10/29/20 22:32 Docusate Sodium 100 Mg Cap PO 100 mg BID GRAHAM Administration Ferrous Sulfate 325 mg 10/29/20 22:00 10/29/20 22:32 Ferrous Sulfate 325 Mg Tab PO 325 mg BID GRAHAM Administration Magnesium Sulfate 40 gm in 1,000 mls @ 50 mls/hr 10/29/20 13:00 Magnesium Sulfate 40gm/1000ml IV DIRECT GRAHAM 2 GM/HR Lactated Ringer's 1,000 mls @ 125 mls/hr 10/29/20 13:00 10/30/20 01:25 Lactated Ringers IV 125 mls/hr DIRECT GRAHAM Administration Ibuprofen 600 mg 10/29/20 12:36 10/29/20 19:27 Ibuprofen 600 Mg Tab PO 600 mg Q6H PRN Administration Pain, Moderate (4-6) Labetalol HCl 100 mg 10/29/20 14:00 10/29/20 20:57 Labetalol 100 Mg Tab PO Not Given TID GRAHAM Labetalol HCl 200 mg 10/29/20 14:00 10/29/20 20:58 Labetalol 200 Mg Tab PO Not Given TID GARHAM Magnesium Hydroxide 30 ml 10/29/20 12:36 Magnesium Hydroxide (Mom) Oral Liqd Udc PO HS PRN Constipation Multi-Ingredient Ointment 1 applic 10/29/20 12:36 Lanolin/Zinc/Dimethicone (Lansinoh) 7 Gm TP PRN PRN Sore Nipples Multivitamins/Iron/Calcium 1 each 10/30/20 10:00 [id number] Fumarate-Folic Acid Vit Tab PO Q[facility] Ondansetron HCl 4 mg 10/29/20 12:36 Ondansetron 4 Mg/2 Ml Inj IV Q8H PRN Nausea And Vomiting Promethazine HCl 25 mg 10/29/20 12:36 Promethazine 25 Mg Tab PO Q6H PRN Nausea And Vomiting Witch Janet/Glycerin 1 each 10/29/20 12:36 Witch Janet/ Glycerin Pad TP PRN PRN Hemorrhoid/cleansing/soothing
[2020-10-30] MEDS: DOCUSATE SODIUM 100 MG CAP PO SCH ×2 (07:28→22:05)
[2020-10-30] MEDS: PRENATAL VIT27-FE FUMARATE-FOLIC ACID VIT TAB PO SCH (13:45)
[2020-10-30] MEDS: FERROUS SULFATE 325 MG TAB PO SCH (22:04)
[2020-10-31] MEDS: PRENATAL VIT27-FE FUMARATE-FOLIC ACID VIT TAB PO SCH (11:46)
[2020-10-31] MEDS: DOCUSATE SODIUM 100 MG CAP PO SCH (11:47)
[2020-10-31] MEDS: IBUPROFEN 600 MG TAB PO PRN (11:47)
[2020-10-31] MEDS: FERROUS SULFATE 325 MG TAB PO SCH (11:47)
--- NOTE | 2020-10-31 17:21 | Event Note ---
Date: 10/31/20 (Pt desires to go home.) Pt has a very strong desire to go home. We discussed that we will check her blood pressure before discharge before the plan can be made for her to go home. Her blood pressures have been mostly 140's/80's. She had one blood pressure this afternoon that was 162/86. Her blood pressures after that reading was 151/80 and 141/88. Plan discussed with RN. Will monitor one more blood pressure before she goes home. If blood pressure is 160's/90-100's, patient can not be discharged home, but will possibly have medication added to her blood pressure regime. Pt verbalized understanding. Will check blood pressure at 630pm and make a plan after 630pm blood pressure check. RN aware and verbalized understanding. Pt denies GRANT, blurred vision, spots before her eyes, chest pain, shortness of breath, and upper abdominal pain.
[2020-10-31 18:29] VITALS: BP 151/89
--- NOTE | 2020-10-31 18:50 | Discharge Summary ---
Providers - Providers Date of Admission: 10/29/20 12:26 Date of discharge: 10/31/20 (Pt has a strong desire to go home.) Attending physician: JANET PETERSEN 10/29/20 12:41 Consult to Chief Librarian Music Department [CONS] Routine Reason For Exam: assistance with , SNS Primary care physician: JANET PETERSEN Hospitalization Reason for admission: other Pertinent studies: Pt was a readmission after a , Day #9 for pre eclampsia. During her IOL she was on magnesium infusion. She was sent home after magnesium and monitoring of blood pressures. She presented to the office for her blood pressure check and had blood pressures that were 160/120 & 160/100 respectively. This admission she had a course of magnesium for 24 hours and has been taking Labetalol 300mg three times daily. Her blood pressures have been mostly 140'150's/80's. She was kept until the early evening to make sure her blood pressures remained stable. Upon discharge her blood pressures were 140/87 and 151/89 respectively. She was given strict precautions on when to call the dean of instruction provider. We also discussed that she will have to follow up in the office in 1 week for a blood pressure check. She states that she has a blood pressure cuff at home. We discussed how to take a proper blood pressure at home. At discharge, she denies GRANT, blurred vision, spots before here eyes, chest pain, shortness of breath, and upper abdominal pain. We discussed should any of these symptoms occur with or without a blood pressure of 160/100 or greater, she should call the dean of instruction provider and come to [facility] ER or nearest ER for evaluation. Pt verbalized understanding of all these instructions. Condition at discharge: Good Disposition: 01 HOME / SELF CARE / HOMELESS Plan - Provider Discharge Summary Activity: routine, no sex for 6 weeks, no heavy lifting 4 weeks, no strenuous exercise Diet: routine Instructions: routine Additional instructions: [] Smoking cessation referral if applicable(refer to patient education folder for contact #) [] Refer to [facility] Booklet Call your doctor immediately for: * Fever > 100.5 * Heavy vaginal bleeding ( >1 pad per hour) * Severe persistent headache * Shortness of breath * Reddened, hot, painful area to leg or breast * Drainage or odor from incision. * Keep incision clean and dry at all times and follow doctor's instructions regarding bathing/showering Please schedule a blood pressure check in the office in 1 week. Please call the office if you have any questions or concerns after discharge. The phone number is [phone]. Taking your blood pressure at home Please take your blood pressure once daily. Take your blood pressure medication as written by your doctor Taking your blood pressure with a wrist monitor: 1. Put the blood pressure cuff on your wrist. Make sure it is not on the bone of your wrist. 2. Sit with your legs uncrossed and feet flat on the ground. 3. Wait 5-10 minutes before taking your blood pressure. 4. If you wrist monitor requires you to put your arm across your chest: After 5-10 minutes, put your arm across your chest like you are about to say the pledge of allegiance. Taking your blood pressure with a cuff monitor: 1. Put the blood pressure cuff on your arm. 2. Sit with your legs uncrossed and feet flat on the ground. Make sure your arm is relaxed on a table or your kitchen table and bent at a 90 degree angle. 3. After 5-10 minutes push the button to take your blood pressure. While you are at home, if you experience a headache, blurred vision, spots before your eyes, chest pain, shortness of breath, pain in your upper belly, and/or your blood pressure is 160/100 or greater please call the on-call provider immediately. - Follow up plan Follow up: JANET PETERSEN MD [Primary Care Provider] - 7 Days
== END 2020-10-31 19:40 | disposition home or self-care (01) | DRG 776 ==
LOC: LD 12:26 → OB 10-30 15:36
PROVIDERS: ADMIT Obstetrics & Gynecology; ATTEND Obstetrics & Gynecology
DX: O14.95 Unspecified pre-eclampsia, complicating the puerperium (principal)
CPT/HCPCS: 36415; 81001; 82565; 83615; 83735; 84450; 84460; 84550; 85027; 87086; G0378; J0360; J3475; J7120

== ENCOUNTER 2020-12-03 10:01 | Day surgery (SDC) | payer BC, MEDICAID ==
--- NOTE | 2020-12-02 09:11 | History and Physical Report ---
History of Present Illness Date of examination: 12/02/20 Date of admission: 12/03/20 Chief complaint: vaginal bleeding History of present illness: History of Present Illness: pt presents for investigative assistant evaluation, declines std testing; no investigative assistant c/o.....................................................................Sharmila Desai December 01, 2020 10:13 AM Mask, Patient denies fever, cough, shortness of breath and exposure to COVID-19. Pt presents with contined episoded of spontaneous heavy bleeding with passing of clots that will last for an hour at a time and have been a week apart. Pt had on 10/22/20 that was complicated by pre E and readmission. Currently the bleeding is not heavy and she has not passed any clots since taking the cytotec last visit. Sono today demonstrate lining is still thickened. All risk/benefits/alternatives were d/w pt and questions were addressed and answered. She desires to have D&C. All questions were adressed and answered. Vital Signs: Patient Profile: 30 Years Old Female Height: 62 inches (157.48 cm) Weight: 232 pounds BMI: 42.43 Temp: 96.7 degrees F BP sittin / 74 (left arm) Menstrual History: LMP - Character: still bleeding from del Current Method of Contraception: None Date of Last Pap Smear: 09/27/2019 Past History : 5 Term Births: 2 Premature Births: 0 Living Children: 2 Para: 2 Mult. Births: 0 Prev : 0 Aborta: 2 Elect. Ab: 2 Spont. Ab: 0 Ectopics: 0 # 1 Delivery date: 09/23/2010 Weeks Gestation: 39+2 Delivery type: Vaginal Anesthesia type: IV medication Infant Sex: female weight: 5.88 # 2 Delivery date: 01/19/2012 Weeks Gestation: 39 Delivery type: Vaginal Hours of labor: 8 Anesthesia type: IV medication Delivery location: [facility] Infant Sex: male weight: 7.31 # 3 Delivery date: 2013 Weeks Gestation: Unknown Delivery type: EAB Comments: Pt unsure of gestational age at termination, took medications, denies complications and did not have a D&C. # 4 Delivery date: 2019 Weeks Gestation: Unknown Delivery type: EAB Comments: Denies D&C and complications; reports she took medications. Pt unsure how many weeks of gestation at time of termination. # 5 Delivery date: 10/22/2020 Weeks Gestation: 36.4 Delivery type: Vaginal Hours of labor: 8hours Anesthesia type: IV medication Delivery location: [facility] Infant Sex: female weight: 5.88 Comments: gHTN, 36.4 wks @ time of delivery PUBLIC RELATIONS History Uterine Surgery (not C/S): negative Operations: negative Anesthesia Complications: negative Abnormal PAP: negative Uterine Anomaly: negative CRISSY Exposure: negative Infertility: negative Infection History HIV Risk Eval: no TB exposure: no Personal hx. of genital herpes: no Partner hx. of genital herpes: no Hx of STD: none Active Medications (reviewed today): ibuprofen 800 mg tablet (ibuprofen) 1 tablet by mouth every eight hours as needed for pain Current Allergies (reviewed today): No known allergies Past Medical History: Negative Past Medical History no std hx no abd pap hx Past Surgical History: negative [[facility]] Risk Factors: Smokeless Tobacco Use: Never HIV High Risk Behavior: no Exercise: no Seatbelt Use: 100 % Alcohol Use: yes Type: occ Drug Use: no [[facility]] Laboratory Results Urine HCG: negative Past History Past Medical History: other (see hpi) Past Surgical History: other (see hpi) PUBLIC RELATIONS History: other (see hpi) Family/Genetic History: other (see hpi) - Obstetrical History : 5 Medications and Allergies Allergies Allergy/AdvReac Type Severity Reaction Status Date / Time No Known Allergies Allergy Verified 10/30/20 21:03 Home Medications Medication Instructions Recorded Confirmed Last Taken Type Aspirin 325 mg PO ONCE 10/23/20 10/31/20 10/21/20 10:00 History Vit-Fe Fumar-FA [ 1 tab PO DAILY 10/23/20 10/31/20 10/21/20 10:00 History Vitamin] Labetalol HCl [Labetalol 300mg TAB] 300 mg PO TID #90 tablet 10/24/20 10/31/20 Unknown Rx Labetalol HCl [Labetalol 300mg TAB] 300 mg PO TID #90 tablet 10/31/20 Unknown Rx - Physical Exam Breasts: Positive: deferred Cardiovascular: Normal S1, Normal S2 Lungs: Positive: Clear to auscultation, Normal air movement Abdomen: Positive: normal appearance, soft. Negative: distention, tenderness, guarding Genitourinary (Female): Positive: other (deferred until EUA) Results All other labs normal. Assessment and Plan - Patient Problems (1) bleeding Status: Acute Qualifiers: hemorrhage type: unspecified Qualified Code(s): O72.1 - Other immediate hemorrhage Plan to address problem: - will do D&C for what appears to be clots vs retained pocs in uterus -all risk, benefits, and alternatives were d/w pt and questions were addressed and answered. -consents signed and placed on the chart.
[~2020-12-03 10:01] MED LIST: ceFAZolin/Water 2 GM/20 ML 2 GM/20 ML SYRINGE IV NR
--- NOTE | 2020-12-03 10:46 | Anesthesia Day of Surgery ---
Anesthesia Day of Surgery - Day of Surgery Patient Examined: Yes Patient H&P Reviewed: Yes Patient is NPO: Yes
--- NOTE | 2020-12-03 10:48 | Anesthesia Consultation ---
Anesthesia Consult and Med Hx Date of service: 12/03/20 - Airway Anesthetic Teeth Evaluation: Good ROM Head & Neck: Adequate Mental/Hyoid Distance: Adequate Mallampati Class: Class III Intubation Access Assessment: Probably Good - Pre-Operative Health Status ASA Pre-Surgery Classification: ASA2 Proposed Anesthetic Plan: General - Pulmonary Hx Smoking: No Hx Asthma: No - Cardiovascular System Hx Hypertension: No - Central Nervous System Hx Seizures: No Hx Psychiatric Problems: No - Endocrine Hx Renal Disease: No Hx Hypothyroidism: No Hx Hyperthyroidism: No - Hematic Hx Anemia: No Hx Sickle Cell Disease: No - Other Systems Hx Alcohol Use: No - Additional Comments Anesthesia Medical History Comments: Had baby [id number] and had pre-eclam psia. Off labetalol x 1 week. Pt states she's not
[2020-12-03 11:14] LABS: Hematocrit 32.8 % (30.3-42.9); Hemoglobin 10.3 gm/dl (10.1-14.3); Mean Corpuscular HGB Conc 31 % (30-34); Mean Corpuscular Volume 86 fl (79-97); Platelet Count 228 K/mm3 (140-440); Red Blood Count 3.83 M/mm3 (3.65-5.03); Red Cell Distribution Width 14.2 % (13.2-15.2)
[2020-12-03] MEDS ORDERED: ONDANSETRON 4 MG/2 ML INJ IV PRN (11:30)
[2020-12-03] MEDS ORDERED: HYDROmorphone 1 MG/1 ML INJ IV PRN ×2 (11:30)
[2020-12-03] MEDS ORDERED: MIDAZOLAM 2 MG/2 ML INJ IV NR (11:30)
[2020-12-03] MEDS ORDERED: LACTATED RINGERS 1,000 ML IV SCH (11:30)
[2020-12-03] MEDS ORDERED: MORPHINE 2 MG/1 ML INJ IV ONE (11:30)
[2020-12-03] MEDS ORDERED: METHYLERGONOVINE MALEATE 0.2 MG/ML VIAL IM ONE (11:58)
[2020-12-03] MEDS ORDERED: fentaNYL 100 MCG/2 ML INJ ONE (12:02)
[2020-12-03] MEDS ORDERED: ONDANSETRON 4 MG/2 ML INJ ONE (12:02)
[2020-12-03] MEDS ORDERED: propofoL 200 MG/20 ML VIAL IV ONE (12:02)
[2020-12-03] MEDS ORDERED: LIDOCAINE MPF (2%) 20 MG/1 ML VIAL 5 ML ONE (12:02)
--- NOTE | 2020-12-03 12:12 | Event Note ---
Date: 12/03/20 Quant noted to be in low positive range Likely related to possible retained pocs and that she is just 5 wks pp.I d/w this finding. She states she has not has sex since delivery protected or unprotected and she is sure she is not . Will proceed with procedure and follow path at this time.
[2020-12-03] MEDS ORDERED: dexAMETHasone 20 MG/5 ML VIAL ONE (12:28)
[2020-12-03] MEDS ORDERED: OXYTOCIN 10 UNIT/1 ML INJ ONE (12:41)
[2020-12-03] MEDS ORDERED: SILVER NITRATE APPLICATOR 1 EA TP ONE ×2 (12:44→12:56)
[2020-12-03] MEDS ORDERED: SODIUM CHLORIDE 0.9% IRR 1,500 ML BOTTLE IR ONE (12:59)
[2020-12-03] MEDS ORDERED: LACTATED RINGERS 1,000 ML ONE (13:05)
--- NOTE | 2020-12-03 17:31 | Post Anesthesia Evaluation ---
- Post Anesthesia Evaluation Patient Participated: Yes Airway Patent: Yes Stable Respiratory Function: Yes Nausea/Vomiting: No Temp > 96.8F: Yes Pain Manageable: Yes Adequeate Hydration: Yes Anesthesia Complications: No Block Receding Appropriately: Not Applicable Patient on Ventilator: No
--- NOTE | 2020-12-03 18:12 | Short Stay Summary ---
Short Stay Documentation Date of service: 12/03/20 - History H&P: dictated - Allergies and Medications Current Medications: Allergies No Known Allergies Allergy (Verified 12/02/20 14:49) Home Medications Medication Instructions Recorded Confirmed Last Taken Type RX: Ibuprofen [Motrin 800 MG tab] 800 mg PO Q8HR PRN #30 tablet 12/03/20 Unknown Rx oxyCODONE /ACETAMINOPHEN [Percocet 1 tab PO Q4HR #10 tab 12/03/20 Unknown Rx 5/325] Active Medications Hydromorphone HCl (Hydromorphone 1 Mg/1 Ml Inj) 0.25 mg IV Q10MIN PRN PRN Reason: Pain, Moderate (4-6) Hydromorphone HCl (Hydromorphone 1 Mg/1 Ml Inj) 0.5 mg IV Q10MIN PRN PRN Reason: Pain , Severe (7-10) Last Admin: 12/03/20 13:35 Dose: 0.5 mg Documented by: Lactated Ringer's (Lactated Ringers) 1,000 mls @ 125 mls/hr IV DIRECT GRAHAM Last Admin: 12/03/20 11:10 Dose: 125 mls/hr Documented by: Ondansetron HCl (Ondansetron 4 Mg/2 Ml Inj) 4 mg IV ONCE PRN PRN Reason: Nausea And Vomiting - Physical exam Breasts: deferred - Brief post op/procedure progress note Date of procedure: 12/03/20 Pre-op diagnosis: vaginal bleeding Post-op diagnosis: same Procedure: suction D&C Anesthesia: GETA Findings: See operative report Surgeon: EBONI REESE Estimated blood loss: other (250 mL) Pathology: none (Intrauterine contents) Specimen disposition: to lab Condition: stable - Hospital course Hospital course: Patient was admitted for above-stated procedure. Patient underwent procedure that was not complicated. Patient went home after she met discharge criteria in the PACU. - Disposition Condition at discharge: Good Disposition: 01 HOME / SELF CARE / HOMELESS - Discharge Diagnoses (1) bleeding Status: Acute Qualifiers: hemorrhage type: unspecified Qualified Code(s): O72.1 - Other immediate hemorrhage Short Stay Discharge Plan Activity: other (Pelvic rest) Weight Bearing Status: Weight Bear as Tolerated Diet: regular Additional Instructions: PELVIC REST -- NOTHING IN VAGINA, NO TAMPONS OR INTERCOURSE UNTIL APPROVED BY MD KEEP FOLLOW UP APPOINTMENT -- CALL OFFICE FOR APPOINTMENT OR ANY QUESTIONS ACTIVITY TOLERATED TAKE MEDS PRESCRIBED YOU MAY RESUME YOUR REGULAR DIET -- AVOID SPICY OR GREASY FOODS FOR FIRST MEAL TODAY DO NOT DRIVE, OPERATE HEAVY EQUIPMENT OR SIGN LEGAL DOCUMENTS X 24 HRS Forms: Outpatient Surgery DC Inst. Prescriptions: RX: Ibuprofen [Motrin 800 MG tab] 800 mg PO Q8HR PRN #30 tablet PRN Reason: Pain, Moderate (4-6) oxyCODONE /ACETAMINOPHEN [Percocet 5/325] 1 tab PO Q4HR #10 tab
--- NOTE | 2020-12-03 18:12 | Operative Report ---
Operative Report Operative Report: Date of procedure: 12/03/2020 Pre-operative diagnosis: Delayed bleeding Rule out retained products of conception Post-operative diagnosis: Same Procedure name(s): Exam under anesthesia dillitation and currettage diliation and evacuatiion Surgeon: Dr. Cano Hand Ii Tube Bender: Certified surgical scrub equity sales assistant Anesthesia: General EBL: 250 mL Urine output: 200 mL of clear urine out via straight catheterization prior to the procedure Fluids: 500 mL Findings: Approximately 10-week size uterus Normal cervix with multiple nabothian cysts present very friable Tenaculum site with bleeding noted at the end of the procedure single [id number] stitch placed at this point with excellent hemostasis noted. Indications: Patient delivered approximately 5 weeks ago noted to have spontaneous episodes of bleeding in large amounts with passage of large clots. Sonogram showed clots versus retained products of conception that remained unchanged despite medical therapy aimed at evacuating the uterus. All risk benefits and alternatives discussed with the patient. Patient desired surgical intervention at this time. Procedure: Patient was taken to the operating room where she was placed under [mask anesthesia]. She was then prepped and draped in sterile fashion. She was placed in dorsal lithotomy position with legs in Krishna stirrups. Urine output was obtained via straight catheterization. The anterior lip of the cervix was grasped with a tenaculum and the uterus was sounded to approximately [10 ]cm. As at this point that the cervix was dilated to allow the passage of a [8 ]mm suction curette. Suction dilatation and curettage occurred until a gritty texture was obtained on all surfaces of the uterus. Intrauterine content were removed from the uterus. Patient was given [Pitocin] at the end of the procedure. On the anterior lip of the cervix where the tenaculum had been connor cassandra, bleeding was noted. Silver nitrate was applied. Patient continued to have oozing at this point. A single stitch using 3-0 Vicryl was placed at this site. Excellent hemostasis noted. Hemostasis was noted to be excellent. Patient was taken to the recovery room awake and in stable condition. Patient was given Ancef prior to the onset of the procedure. All laps and needle counts were correct. Patient tolerated the procedure well.
[2020-12-03 19:42] VITALS: BP 148/92
== END 2020-12-03 15:15 | disposition home or self-care (01) ==
LOC: OR 10:01
PROVIDERS: ATTEND Obstetrics & Gynecology
DX: O72.2 Delayed and secondary postpartum hemorrhage (principal); Z79.899 Other long term (current) drug therapy
CPT/HCPCS: 36415; 59160; 84702; 85027; 86850; 86900; 86901; 88305; J0690; J1100; J1170; J2270; J2405; J2590; J2704; J3010; J7120; J2210

== ENCOUNTER 2021-05-08 21:18 | Emergency (ER) | payer BC, MEDICAID ==
[2021-05-08 21:27] VITALS: BP 152/109
== END 2021-05-09 06:31 | disposition left against medical advice (07) ==
LOC: ED 21:18
DX: R42 Dizziness and giddiness (principal); Z53.21 Procedure and treatment not carried out due to patient leaving prior to being seen by health care provider